=== PATIENT | male | born 2000 | race Caucasian/White ===

== ENCOUNTER → 2018-04-03 | Outpatient (CLI) | payer OTHER ==
[2018-04-03] MEDS: LIDOCAINE 1% Multi-Dose 20 ML VIAL. ID (15:34)
[2018-04-03] MEDS: GADOBUTROL 7.5 MMOL/7.5 ML VIAL INT ART (15:35)
[2018-04-03] MEDS: IOHEXOL 300 MG/ML 50 ML VIAL. INT ART (15:36)
== END | disposition home or self-care (01) ==
LOC: KCIC 14:24
DX: M25.512 Pain in left shoulder (principal); G43.909 Migraine, unspecified, not intractable, without status migrainosus
CPT/HCPCS: 73040; 73222; A9585; Q9967